=== PATIENT | male | born 1940 | race Caucasian/White ===

== ENCOUNTER → 2016-12-13 | Outpatient (CLI) | payer MEDICARE, OTHER | END | disposition home or self-care (01) | LOC: GMAM 14:22 | PROVIDERS: ATTEND Family Medicine | DX: Z12.5 Encounter for screening for malignant neoplasm of prostate (principal) ==

== ENCOUNTER → 2017-06-16 | Outpatient (CLI) | payer MEDICARE, OTHER | LOC: GMAM 14:14 | PROVIDERS: ATTEND Family Medicine | DX: R53.83 Other fatigue (principal) ==

== ENCOUNTER → 2017-08-08 | Outpatient (CLI) | payer MEDICARE, OTHER | LOC: GMAM 10:46 | PROVIDERS: ATTEND Family Medicine | DX: E29.1 Testicular hypofunction (principal) ==

== ENCOUNTER → 2017-11-04 | Outpatient (CLI) | payer MEDICARE, OTHER | LOC: GMAM 12:05 | PROVIDERS: ATTEND Family Medicine | DX: I10 Essential (primary) hypertension (principal); K85.90 Acute pancreatitis without necrosis or infection, unspecified ==

== ENCOUNTER → 2017-11-09 | Outpatient (CLI) | payer MEDICARE, OTHER ==
--- NOTE | 2017-11-09 09:06 | US ---
EXAM DESCRIPTION: Gall Bladder CLINICAL HISTORY: ACUTE PANCREATITIS COMPARISON: None Available. TECHNIQUE: Right upper quadrant ultrasound FINDINGS: Pancreas: Visualized portions of the pancreas are unremarkable. Bowel gas obscures some areas. Aorta/inferior vena cava: No aortic aneurysm. Normal inferior vena cava. Liver: The liver is homogeneous in texture with normal echogenicity of the hepatic parenchyma. No focal liver lesion or intrahepatic bile duct dilatation. No liver surface irregularity. Normal appearance of the portal vein and hepatic veins. Gallbladder: Gallbladder appears contracted with no intraluminal stones or pathologic wall thickening. Tiny cholesterol polyp is seen anteriorly near the fundus. Common bile duct: Normal caliber measuring 4.0 mm. Right kidney: Renal length is 10.1 cm. Normal cortical echogenicity. Cortical thickness is normal. No hydronephrosis is seen. No renal mass or shadowing calculus. IMPRESSION: No diagnostic abnormality is identified on sonographic examination of the right upper quadrant. Electronically signed by: Nolan Sutton MD 11/09/2017 9:04 AM CDT
== END ==
LOC: US 08:30
PROVIDERS: ATTEND Family Medicine
DX: K85.90 Acute pancreatitis without necrosis or infection, unspecified (principal)

== ENCOUNTER → 2017-11-10 | Outpatient (CLI) | payer MEDICARE, OTHER ==
--- NOTE | 2017-11-10 16:55 | CT ---
EXAM DESCRIPTION: Abdomen/Pelvis w/wo Contrast: Computed Tomography. CLINICAL HISTORY: ACUTE PANCREATITIS. Recently hospitalized with Chills fever and abdominal pain in [place]. Patient feels better now. COMPARISON: None. TECHNIQUE: Spiral-axial scans at 5 x 5 mm intervals through the abdomen and pelvis before and after standard dose nonionic IV contrast. No oral contrast. Coronal and sagittal 2.0 mm reconstructions. 5 mm Delayed helical-axial scans, liver through the pubic symphysis. No adverse reactions. Total Exam DLP 2679.15 mGy - cm. This exam was performed according to our departmental CT dose-optimization program which includes automated exposure control, adjustment of the mA and/or kV according to patient size and/or use of iterative reconstruction technique; to reduce radiation dose to as low as reasonably achievable (ALARA). FINDINGS: Lung bases and pleura: Minimal pleural thickening but no definite effusion. Liver, Stomach, Spleen, Adrenal Glands: Gallbladder fossa rotated slightly to the anterior aspect of the liver. Calcifications in the spleen. Small sliding hiatal hernia with stomach otherwise negative. Other solid organs are negative. Liver not enlarged. Pancreas, Gallbladder, Ducts: The distal body and tail of the pancreas are minimally enlarged with heterogeneous enhancement minimal indistinctness of the capsule and minimal density in the surrounding fat. No fluid collection or definite mass. Pancreatic duct not dilated. Gallbladder and common bile duct are unremarkable. Kidneys and Ureters: 4 mm radiodense stone in the inferior collecting system of the left kidney with no hydronephrosis. 3 mm radiodense stone in the mid collecting system of the right kidney with no hydronephrosis and normal ureters.. Mesentery: Minimal density around the distal body and tail of the pancreas. No free air or ascites. No fascial stranding. Aorta: Minimal atherosclerotic changes with normal caliber. Small Bowel: Unremarkable. Terminal Ileum/Cecum: Negative. Appendix is visible and normal caliber. No surrounding mesenteric changes. Colon: Normal caliber with diverticula in the mid and distal sigmoid colon with no complications. Pelvic Organs: Prostate gland measures 3.8 x 3.4 cm with central calcification. Lobular mass effect on the base of the bladder. Spine and Bony Pelvis: Spondylosis posterior L5-S1 disc space. Bilateral moderate foraminal narrowing and possible stenosis. Also posterior spondylosis left L3-4 disc space and significant narrowing of the adjacent foramen. Bilateral hypertrophy of the acetabular lateral margins and minimal narrowing of the disc space and over coverage of the femoral heads. Abdominal Wall/Back Soft Tissues: Small bilateral fatty inguinal hernias not containing bowel larger on the right. IMPRESSION: 1. Minimal edema and enlargement of the distal body and tail of the pancreas with heterogeneous enhancement and inflammatory changes in the capsule and adjacent fat consistent with clinical history. No abscess. No focal masses. Pancreatic duct not dilated. No free fluid or free air. 2. 4 mm nonobstructing stone in the inferior collecting system of the left kidney. 3 mm nonobstructing stone in the mid collecting system of the right kidney. Ureters are unremarkable. 3. Mildly enlarged prostate gland impressing on the base of the urinary bladder. Mild sigmoid diverticulosis with no evidence of complications. Spondylosis L5-S1 and L3-4 with significant foraminal narrowing. Small bilateral fatty inguinal hernias not containing bowel. Electronically signed by: Maximilian Pool MD 11/10/2017 4:53 PM CDT
== END ==
LOC: CT 08:00
PROVIDERS: ATTEND Family Medicine
DX: K85.90 Acute pancreatitis without necrosis or infection, unspecified (principal); N20.0 Calculus of kidney; N40.0 Benign prostatic hyperplasia without lower urinary tract symptoms; K57.30 Diverticulosis of large intestine without perforation or abscess without bleeding; M47.897 Other spondylosis, lumbosacral region; K40.20 Bilateral inguinal hernia, without obstruction or gangrene, not specified as recurrent

== ENCOUNTER → 2018-10-20 | Outpatient (CLI) | payer MEDICARE, OTHER | LOC: GMAM 10:24 | PROVIDERS: ATTEND Family Medicine | DX: Z12.5 Encounter for screening for malignant neoplasm of prostate (principal); I10 Essential (primary) hypertension ==

== ENCOUNTER → 2019-01-22 | Outpatient (CLI) | payer MEDICARE, OTHER | LOC: GMAM 14:32 | PROVIDERS: ATTEND Family Medicine | DX: K85.90 Acute pancreatitis without necrosis or infection, unspecified (principal); E29.1 Testicular hypofunction ==

== ENCOUNTER → 2019-07-17 | Outpatient (CLI) | payer MEDICARE, OTHER ==
--- NOTE | 2019-07-18 09:23 | US ---
EXAM DESCRIPTION: Soft Tissue,Extremity: ULTRASOUND. CLINICAL HISTORY: 79 years Male SPONTANEOUS RUPTURE OF OTHER TENDONS. Using right arm. Noticed swelling and bruising that night. Less pain, but continued weakness with deformity of the biceps muscle. COMPARISON: None Available. TECHNIQUE: Transcutaneous scanning: Zacarias-scale and Doppler modes. FINDINGS: Short head biceps tendon and muscle are intact. Long head biceps tendon is elongated. Mid tendon less well-defined and increased echogenicity. Musculotendinous junction is also poorly defined with increased echogenicity. No residual fluid. IMPRESSION: Tendinosis versus partial tear of long head biceps tendon with increased length. Partial tear of the long head biceps at the musculotendinous junction. Consider MRI scan and orthopedic surgical consult. Electronically signed by: Maximilian Pool MD 07/18/2019 9:21 AM CDT
== END ==
LOC: US 14:20
PROVIDERS: ATTEND Family Medicine
DX: M66.821 Spontaneous rupture of other tendons, right upper arm (principal); M67.911 Unspecified disorder of synovium and tendon, right shoulder

== ENCOUNTER → 2019-07-24 | Outpatient (CLI) | payer MEDICARE, OTHER ==
--- NOTE | 2019-07-25 10:48 | MRI ---
Study: MRI of the right humerus/shoulder. Indication: SPONTANEOUS RUPTURE OF TENDON Technique: Multiplanar, multi sequence MRI of the right humerus/shoulder was obtained without intravenous contrast. Comparison: Ultrasound July 17, 2019. 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 Mild type II acromion with cortical remodeling of its undersurface. Prior rotator cuff tendon repair with suture anchors greater tuberosity. High-grade supraspinatus and infraspinatus tendinosis, attenuation, tendon elongation and medial myotendinous retraction by 20 mm. Changes are most pronounced at the insertional and critical zone fibers of the mid supraspinatus tendon and anterior infraspinatus tendon where thinning Calbert reduced by to 90%, which may be secondary to prior articular debridement or chronic tearing. No complete tendon rupture. Effectively full-thickness, fullwidth subscapularis tendon tearing. Teres minor tendon intact. Mild to moderate atrophy and grade 1 fatty infiltration rotator cuff musculature. Intracapsular long head biceps tendon not visualized. Miniscule remnant tendon fiber noted at the intertubercular groove with longitudinal split tearing immediately inferior to this site. More distally at the proximal myotendinous junction corresponding to the level of the mid humeral shaft there is partial thickness tearing/strain with associated intramuscular edema. The distal insertion is not completely included within the [id number] but is grossly intact. Circumferential labral truncation and degeneration. Mild glenohumeral joint osteoarthritis with a small joint effusion. No acute fracture the right shoulder or humerus. Impression: High-grade partial to full-thickness tearing intracapsular long head biceps tendon with a miniscule tendon remnant at the intertubercular groove. In addition, there is a partial thickness tear/strain of the proximal myotendinous junction. No rupture at this site. Additional findings as above. Electronically signed by: Mauro Terry MD 07/25/2019 10:47 AM CDT
== END ==
LOC: MRI 13:00
PROVIDERS: ATTEND Family Medicine
DX: S46.111A Strain of muscle, fascia and tendon of long head of biceps, right arm, initial encounter (principal); S46.811A Strain of other muscles, fascia and tendons at shoulder and upper arm level, right arm, initial encounter

== ENCOUNTER → 2019-08-27 | Outpatient (CLI) | payer MEDICARE, OTHER | LOC: GMAM 10:32 | PROVIDERS: ATTEND Family Medicine | DX: E29.1 Testicular hypofunction (principal) ==

== ENCOUNTER 2020-02-08 17:11 | Emergency (ER) | payer MEDICARE, OTHER ==
[2020-02-08] MEDS ORDERED: SODIUM CHLORIDE 0.9% (FLUSH) 10 ML SYG IV PRN (18:11)
--- NOTE | 2020-02-08 19:51 | CT ---
EXAM DESCRIPTION: Abdomen/Pelvis w/Contrast 02/08/2020 7:41 PM SALES TRAINER CLINICAL HISTORY: 79 years, Male, RLQ pain COMPARISON: 11/10/2017. PROCEDURE: Contrast-enhanced images of the abdomen and pelvis were performed utilizing 2 mm slice thickness at 2 mm interval reconstruction from the lung bases to the ischial tuberosities after the administration of IV contrast. No dosing amount was provided for interpretation. In addition multiplanar reformats in the coronal and sagittal plane were obtained and reviewed. An individualized dose optimization technique, Automated Exposure Control, was utilized for the performed procedure. FINDINGS: The lung bases demonstrate presence of calcified granuloma within the right infrahilar area. The liver, gallbladder, pancreas, spleen and adrenal glands demonstrate to be unremarkable, no focal lesions are noted. Again there are tiny calcified renal mass within the spleen The kidneys demonstrate normal uptake of contrast media. There is a 2.4 mm calculus mid/upper pole right kidney on image 36. There is a 4 mm calculus lower pole left kidney on image 46. There is no evidence for hydronephrosis and/or hydroureter] IV kidney. Grossly the unopacified stomach and small bowel demonstrate to be within normal limits. There is suboptimal distention within the large bowel. There is minimal periappendiceal haziness and cecum area with prominent size of the appendix measuring 1.02 cm on image 62/95 findings are highly suspicious of acute appendicitis. No appendicolith is is demonstrated. There is no evidence for abscess formation. There is no evidence for perforation. There is diverticulosis within the sigmoid colon with no definitive significant for mother changes. The urinary bladder demonstrate to be unremarkable. The prostate gland is unremarkable. The aorta demonstrate to be normal. There is no retroperitoneal lymphadenopathy. There is no evidence for ascites and/or significant abnormal fluid collections. Bone windows demonstrate mild bony osteopenia. There is degenerative disc disease with vacuum effect at L4/L5 and L5/S1. IMPRESSION: OLD GRANULOMATOUS DISEASE. BILATERAL NEPHROLITHIASIS WITH NO EVIDENCE FOR HYDRONEPHROSIS. DIVERTICULOSIS WITH NO DEFINITIVE EVIDENCE FOR DIVERTICULITIS. ABNORMAL ENLARGEMENT OF THE APPENDIX WITH SURROUNDING PERIAPPENDICEAL/PERICECAL INFLAMMATORY CHANGES SUGGESTING ACUTE APPENDICITIS. NO EVIDENCE FOR PERFORATION AND/OR ABSCESS FORMATION. Electronically signed by: Kannan Ferrara MD 02/08/2020 7:49 PM SALES TRAINER
--- NOTE | 2020-02-08 19:54 | ED.PDOC ---
History of Present Illness - General Chief Complaint: Abdominal Pain Stated Complaint: abdominal pain Time Seen by Provider: 02/08/20 18:11 Information Source: patient, RN notes reviewed, Vital Signs reviewed Exam Limitations: no limitations - History of Present Illness Initial Comments: Patient is a 79-year-old white male who presents with complaints of abdominal pain. The abdominal pain started yesterday, was periumbilical and was associated with some mild nausea and cramping. Overnight it migrated to his right lower quadrant and the pain gradually worsened. Patient had some nausea at noon today and that is the last time he had anything to eat today. The pain is worse with movement or palpation or jarring. Better when he lies comfortably resting on his back. Patient had fever yesterday. But has been afebrile today because he is been taking Tylenol Motrin. The pain is nonradiating at this point. Abdominal Pain Onset Location: RLQ, periumbilical Pain Radiation: no radiation Quality: moderate, aching, cramping, stabbing Timing/Duration: 24 hours Improving Factors: rest Worsening Factors: movement Associated Symptoms: nausea/vomiting - nausea only Review of Systems - Review of Systems Constitutional: States: see HPI, chills, fever. Denies: malaise, weakness EENTM: States: no symptoms reported. Denies: eye pain, blurred vision, double vision Respiratory: States: no symptoms reported. Denies: cough, short of breath, stridor, wheezing Cardiology: States: no symptoms reported. Denies: chest pain Gastrointestinal/Abdominal: States: see HPI, abdominal pain, nausea. Denies: diarrhea, vomiting Genitourinary: States: no symptoms reported. Denies: dysuria Musculoskeletal: States: no symptoms reported. Denies: back pain, joint pain, neck pain Skin: States: no symptoms reported. Denies: change in color, rash Neurological: States: no symptoms reported. Denies: headache, tingling, tremors, weakness Endocrine: States: no symptoms reported. Denies: increased hunger, increased thirst, increased urine Hematologic/Lymphatic: States: no symptoms reported. Denies: blood clots, easy bleeding All other Systems: Reviewed and Negative Past Medical History (General) - Patient Medical History Hx Stroke: No Hx Congestive Heart Failure: No Hx Hypertension: Yes Hx Thyroid Disease: No Hx Diabetes: No Hx Renal Disease: No Surgical History: other Family Medical History - Family History Father Family History: No Known Physical Exam - Physical Exam General Appearance: Alert, Comfortable, No apparent distress, Well Developed, Well Groomed, Well Hydrated, Well Nourished Eyes, Ears, Nose, Throat Exam: PERRL/EOMI, normal ENT inspection, pharynx normal Neck: non-tender, full range of motion, supple, normal inspection Respiratory: chest non-tender, lungs clear, normal breath sounds, no respiratory distress, no accessory muscle use Cardiovascular/Chest: normal peripheral pulses, regular rate, rhythm, no edema, no gallop, no JVD, no murmur, JVD Peripheral Pulses: No deficit Gastrointestinal/Abdominal: normal bowel sounds, soft, tenderness - RLQ Back Exam: normal inspection, no CVA tenderness, no vertebral tenderness Extremity: normal range of motion, non-tender, normal inspection, no pedal edema Neurologic: hat model II-XII nml as tested, no motor/sensory deficits, alert, normal mood/affect, oriented x 3 Skin Exam: normal color, warm/dry Lymphatic: no adenopathy Progress - Progress Progress: Differential diagnosis: Acute appendicitis, pyelonephritis, diverticulitis, bowel obstruction among others. 02/08/20 20:03 Patient is markedly tender in the right lower quadrant there is no elevated white count but there is a left shift. CT scan does show acute appendicitis but no perforation. I have discussed this patient with Dr. Potts, general surgery, he would like the patient admitted to the hospitalist service. He is agreed with my assessment of starting Zosyn at this point in time. I am keeping the patient n.p.o. I discussed this patient with Mikhail Valentine, MENDY, and he accepts the patient for admission. Vance Thomas M.D. #[id number] - Results/Orders Results/Orders: EXAM DESCRIPTION: Abdomen/Pelvis w/Contrast 02/08/2020 7:41 PM ASSESSMENT SPECIALIST CLINICAL HISTORY: 79 years, Male, RLQ pain COMPARISON: 11/10/2017. PROCEDURE: Contrast- enhanced images of the abdomen and pelvis were performed utilizing 2 mm slice thickness at 2 mm interval reconstruction from the lung bases to the ischial tuberosities after the administration of IV contrast. No dosing amount was provided for interpretation. In addition multiplanar reformats in the coronal and sagittal plane were obtained and reviewed. An individualized dose optimization technique, Automated Exposure Control, was utilized for the performed procedure. FINDINGS: The lung bases demonstrate presence of calcified granuloma within the right infrahilar area. The liver, gallbladder, pancreas, spleen and adrenal glands demonstrate to be unremarkable, no focal lesions are noted. Again there are tiny calcified renal mass within the spleen The kidneys demonstrate normal uptake of contrast media. There is a 2.4 mm calculus mid/upper pole right kidney on image 36. There is a 4 mm calculus lower pole left kidney on image 46. There is no evidence for hydronephrosis and/or hydroureter] IV kidney. Grossly the unopacified stomach and small bowel demonstrate to be within normal limits. There is suboptimal distention within the large bowel. There is minimal periappendiceal haziness and cecum area with prominent size of the appendix measuring 1.02 cm on image 62/95 findings are highly suspicious of acute appendicitis. No appendicolith is is demonstrated. There is no evidence for abscess formation. There is no evidence for perforation. There is diverticulosis within the sigmoid colon with no definitive significant for mother changes. The urinary bladder demonstrate to be unremarkable. The prostate gland is unremarkable. The aorta demonstrate to be normal. There is no retroperitoneal lymphadenopathy. There is no evidence for ascites and/or significant abnormal fluid collections. Bone windows demonstrate mild bony osteopenia. There is degenerative disc disease with vacuum effect at L4/L5 and L5/S1. IMPRESSION: OLD GRANULOMATOUS DISEASE. BILATERAL NEPHROLITHIASIS WITH NO EVIDENCE FOR HYDRONEPHROSIS. DIVERTICULOSIS WITH NO DEFINITIVE EVIDENCE FOR DIVERTICULITIS. ABNORMAL ENLARGEMENT OF THE APPENDIX WITH SURROUNDING PERIAPPENDICEAL/PERICECAL INFLAMMATORY CHANGES SUGGESTING ACUTE APPENDICITIS. NO EVIDENCE FOR PERFORATION AND/OR ABSCESS FORMATION. Electronically signed by: Kannan Ferrara MD 02/08/2020 7:49 PM ASSESSMENT SPECIALIST EKG performed on 08 February 2020 at 1754 hrs.: Normal sinus rhythm at 84 bpm, normal axis deviation, no ST or T wave changes concerning for acute ischemia, normal EKG. No comparison EKG available at this time. 02/08/20 18:00 EKG STAT 02/08/20 18:11 Sodium Chloride 0.9% (Flush) [Saline Flush Syringe] 10 ml IV PRN PRN 02/08/20 18:15 EKG STAT 02/08/20 18:39 Hold Metformin x 48Hrs [id number] 02/08/20 19:59 URINALYSIS Stat Laboratory Results - last 24 hr 02/08/20 02/08/20 18:31 18:31 WBC 9.4 RBC 5.27 Hgb 16.6 Hct 48.2 MCV 91.4 MCH 31.4 H MCHC 34.4 RDW 13.5 Plt Count 178 MPV 8.8 Absolute Neuts (auto) 7.00 H Absolute Lymphs (auto) 1.20 Absolute Monos (auto) 1.10 H Absolute Eos (auto) 0.10 Absolute Basos (auto) 0.10 Neutrophils % 74.1 Lymphocytes % 12.9 L Monocytes % 11.7 H Eosinophils % 0.7 L Basophils % 0.6 Sodium 142 Potassium 3.9 Chloride 105 Carbon Dioxide 27 Anion Gap 13.9 BUN 22 H Creatinine 1.18 BUN/Creatinine Ratio 18.6 Random Glucose 105 Serum Osmolality 286.8 Calcium 8.5 Total Bilirubin 0.8 Direct Bilirubin 0.1 Indirect Bilirubin 0.7 AST 22 ALT 23 Alkaline Phosphatase 53 Creatine Kinase 127 CK-MB (CK-2) 2.2 CK-MB (CK-2) % Not Reportable Troponin I < 0.02 Serum Total Protein 7.5 Albumin 4.3 Lipase 35 Vital Signs 02/08/20 02/08/20 02/08/20 17:45 18:12 19:12 Temperature 99.2 F Pulse Rate [ 85 88 90 left brachial] Respiratory 16 14 14 Rate Blood Pressure 143/75 136/75 139/81 [left brachial] O2 Sat by Pulse 97 98 98 Oximetry 02/08/20 19:30 Temperature Pulse Rate [ 91 H left brachial] Respiratory 14 Rate Blood Pressure 141/72 [left brachial] O2 Sat by Pulse 98 Oximetry Departure - Departure Clinical Impression: Appendicitis, acute Qualifiers: Acute appendicitis type: other Qualified Code(s): K35.890 - Other acute appendi citis without perforation or gangrene; K35.89 - Other acute appendicitis Time of Disposition: 20:08 Disposition: Admit Patient Condition: Fair Departure Forms: ED Discharge - Pt. Copy, Patient Portal Self Enrollment Diet: other - npo Activity: increase activity as tolerated Referrals: Shakeel Irizarry MD [Primary Care Provider] - 1-2 Weeks Home Medications: Ambulatory Orders Dexlansoprazole [Dexilant] 30 mg PO HS 06/29/13 Glucosamine-Chondroitin [Glucosamine/Chondroitin] 1 liq PO HS 06/29/13 Mometasone Furoate Nasal [place] [Nasonex Nasal [place]] 17 gm SIGRID HS 06/29/13 Decision To Admit - Decistion To Admit Decision to Admit Date: 02/08/20 Decision to Admit Time: 19:45
[2020-02-08] MEDS ORDERED: PIPERACILLIN/TAZOBACTAM 4.5 GM in SODIUM CHLORIDE 0.9% 100ML 100 ML IVPB ONE (20:24)
[2020-02-08] MEDS ORDERED: PIPERACILLIN/TAZOBACTAM 3.375 GM in SODIUM CHLORIDE 0.9% 100ML 100 ML IVPB SCH (20:30)
[2020-02-08] MEDS ORDERED: HYDROmorphone HCL INJ 2 MG/ML VIAL IV ONE (21:04)
[2020-02-08] MEDS ORDERED: ONDANSETRON INJ 4 MG/2 ML VIAL IV ONE (21:04)
[2020-02-08] MEDS ORDERED: LISINOPRIL 10 MG TAB PO ONE (21:05)
[2020-02-08] MEDS ORDERED: ACETAMINOPHEN 500 MG TAB PO ONE (21:11)
[2020-02-09 00:22] VITALS: BP 110/56; TEMP 98.3; O2SAT 97
== END 2020-02-09 00:21 | disposition still patient (30) ==
LOC: ER 17:11
DX: K35.890 Other acute appendicitis without perforation or gangrene (principal); I10 Essential (primary) hypertension; Z20.828 Contact with and (suspected) exposure to other viral communicable diseases
CPT/HCPCS: 36415; 74177; 80048; 80076; 81001; 82550; 82553; 83690; 84484; 85025; 87635; 93005; J2405; J2543; J7050

== ENCOUNTER → 2020-02-14 | Outpatient (CLI) | payer MEDICARE, OTHER | LOC: GMAM 10:48 | PROVIDERS: ATTEND Family Medicine | DX: Z12.5 Encounter for screening for malignant neoplasm of prostate (principal); E78.2 Mixed hyperlipidemia; K35.30 Acute appendicitis with localized peritonitis, without perforation or gangrene; E29.1 Testicular hypofunction | CPT/HCPCS: 84403; G0103 ==